=== PATIENT | female | born 1965 | race Caucasian/White ===

== ENCOUNTER 2019-09-07 09:57 | Day surgery (SDC) | payer BC ==
[~2019-09-07 09:57] MED LIST: Buffered Lidocaine 1% SYRIN* 1 ML/SYRINGE INTRADERM ONE; Dexamethasone IV* 4 MG/ML 1 ML (4 MG) IV SLOW PU ONE; Famotidine IV* 10 MG/ML 2 ML (20 mg) IV ONE; Lactated Ringers 1000 ML Bag* 1,000 ML IV SCH
[2019-09-07] MEDS ORDERED: Dexamethasone IV* 4 MG/ML 1 ML (4 MG) ONE (10:13)
[2019-09-07] MEDS ORDERED: Buffered Lidocaine 1% SYRIN* 1 ML/SYRINGE INTRADERM ONE (10:13)
[2019-09-07] MEDS ORDERED: Famotidine IV* 10 MG/ML 2 ML (20 mg) ONE (10:13)
[2019-09-07] MEDS ORDERED: fentaNYL* 50 MCG/ML 2 ML VIAL (100 MCG VIAL) ONE (12:02)
[2019-09-07] MEDS ORDERED: Midazolam* 1 MG/ML 5 ML VIAL (5 MG) ONE (12:02)
[2019-09-07] MEDS ORDERED: oxyCODONE/Acetamin 5/325 MG* TAB PO PRN (12:42)
[2019-09-07] MEDS ORDERED: fentaNYL* 50 MCG/ML 2 ML VIAL (100 MCG VIAL) IV PRN (12:42)
[2019-09-07] MEDS ORDERED: Ondansetron INJ* 2 MG/ML VIAL IV PRN (12:42)
[2019-09-07] MEDS ORDERED: DiMENhydriNATE IV* 50 MG/ML VIAL IV PUSH PRN (12:42)
[2019-09-07] MEDS ORDERED: Naloxone* 0.4 MG/ML 1 ML VIAL IV PRN (12:42)
[2019-09-07] MEDS ORDERED: oxyCODONE/Acetamin 5/325 MG* TAB ONE (14:09)
[2019-09-07 14:13] VITALS: BP 121/72
--- NOTE | 2019-09-08 00:47 | OP ---
CC: [facility] OPERATIVE REPORT: DATE OF OPERATION: 09/07/19 DATE OF : 67 SURGEON: Kaitlin Conner MD ANESTHESIOLOGIST: Dr. Aguirre. ANESTHESIA: Spinal. PRE-OP DIAGNOSIS: Irregular vaginal bleeding with polypoid appearing mass protruding through the external cervical os. POST-OP DIAGNOSIS: Irregular vaginal bleeding with polypoid appearing mass protruding through the external cervical os, pathology pending. OPERATIVE PROCEDURE: Dilation, hysteroscopy, MyoSure myomectomy, curettage. ESTIMATED BLOOD LOSS: Minimal, less than 50 cc. SPECIMENS: Endometrial curettings with a 3 cm in length by approximately 2 cm in width white pink firm mass with an appearance consistent with fibroid FLUIDS: per anesthesia. DRAINS: None. FINDINGS: Anteverted uterus. Uterus sounds to 8. There is a 1.5 cm mass protruding through the external os. No adnexal masses were palpated. On hysteroscopy, there was a long thin firm mass originating at the fundus going all the way down and exiting the external os. Otherwise, there were no additional endometrial polyps or fibroids seen. COMPLICATIONS: None. COUNTS: Sponge, lap and needle count were correct x2. CONDITION: The patient was brought to recovery room awake and in stable condition. DESCRIPTION OF PROCEDURE: The patient was brought to the operating room when spinal anesthesia was found to be adequate. The patient was prepped and draped in the usual sterile fashion in the dorsal lithotomy position. Time-out was performed. Exam was performed under anesthesia. The weighted speculum was placed in the vagina. The anterior lip of the cervix was grasped with a single- tooth tenaculum and the cervix was gently and easily dilated with the graduated Hegar dilators. The MyoSure scope was introduced with the above findings noted. The mass was removed from its base using the MyoSure Reach. The mass was then delivered through the cervix and sent to pathology. Endometrial curettage was then performed and that was sent to pathology. The single tooth tenaculum was removed from the cervix. Excellent hemostasis was noted. All instruments were removed from the vagina. The patient tolerated the procedure well. Sponge count was correct x2 and the patient was brought to the recovery room awake and in stable condition. [id number]/[facility] #: [id number] [facility]
== END 2019-09-07 14:45 | disposition home or self-care (01) ==
LOC: OR 09:57
PROVIDERS: ATTEND Obstetrics & Gynecology
DX: N93.8 Other specified abnormal uterine and vaginal bleeding (principal); D25.0 Submucous leiomyoma of uterus; Z87.891 Personal history of nicotine dependence
CPT/HCPCS: 81025; 88305; A9270-GY; J1100; J2250; J3010